=== PATIENT | female | born 1955 | race Caucasian/White ===

== ENCOUNTER 2024-09-04 11:01 | Emergency (ER) | payer MEDICARE ==
[~2024-09-04] VITALS: Ht 167.6 cm; Wt 92.8 kg
[~2024-09-04 11:01] MED LIST: BACLOFEN10 MG PO; BENZONATATE200 MG PO; ELIQUIS2.5 MG; HYDROCO/APAP1 TA9 PO; LORATADINE10 M3; METHOTREXATE2.5 MG PO; ONDANSETRON4 MG PO; PILOCARPINE5 MG PO; PREDNISONE10 MG PO; ROBITUSSIN AC10 ML PO
[2024-09-04 11:55] LABS: BASO% 1.6 % (0-3); EOS% 8.4 % (0-8); HEMATOCRIT 41.7 % (37.0-47.0); HEMOGLOBIN 13.1 g/dl (12.0-16.0); IMMATURE GRANULOCYTES 0.4 % (0.0-5.0); LYMPH% 26.3 % (15-41); MEAN CELL VOLUME 94.3 fL CALC (80.0-100.0); MEAN CORPUSCULAR HGB 29.6 pG CALC (26.0-32.0); MEAN CORPUSCULAR HGB CONC 31.4 g/dL CAL (32.0-36.0); MONO% 8.2 % (2-13); NEUT# 4.61 thou/uL (2.00-7.15); NEUT% 55.1 % (42-76); RED BLOOD COUNT 4.42 mill/uL (4.20-5.60); RED CELL DISTRI WIDTH 13.9 % (11.5-15.5)
[2024-09-04 11:58] LABS: URINE BILIRUBIN - DIPSTICK Negative (NEGATIVE); URINE BLOOD DIPSTICK Trace-intact (NEGATIVE); URINE GLUCOSE - DIPSTICK Negative (NEGATIVE); URINE KETONE Negative (NEGATIVE); URINE LEUK ESTERASE Negative (NEGATIVE); URINE NITRITE - DIPSTICK Negative (Negative); URINE PROTEIN - DIPSTICK Negative (NEG-TRACE); URINE UROBILINOGEN - DIPSTICK 0.2 E.U./dL (0.2)
[2024-09-04 12:00] LABS: URINE COLOR Yellow
[2024-09-04 12:02] LABS: ALBUMIN 4.4 g/dL (3.2-5.0); BILIRUBIN, TOTAL 0.5 mg/dL (0.02-1.3); CREATININE 0.8 mg/dL (0.5-1.0); POTASSIUM 4.1 mmol/l (3.5-5.1); TOTAL PROTEIN 7.5 g/dL (6.3-8.2)
[2024-09-04 12:08] VITALS: BP 135/76
[2024-09-04 12:13] VITALS: BP 130/76
[2024-09-04 12:28] VITALS: BP 138/79
[2024-09-04 12:40] VITALS: BP 138/79
== END 2024-09-04 12:43 | disposition home or self-care (01) ==
LOC: ED 11:01
PROVIDERS: Family Medicine
DX: S39.011A Strain of muscle, fascia and tendon of abdomen, initial encounter (principal); X58.XXXA Exposure to other specified factors, initial encounter; Z86.718 Personal history of other venous thrombosis and embolism; Z86.711 Personal history of pulmonary embolism; Z79.01 Long term (current) use of anticoagulants